=== PATIENT | male | born 1960 | race Caucasian/White ===

== ENCOUNTER 2020-07-17 08:37 | Inpatient (IN) | payer BC ==
[~2020-07-17] VITALS: Ht 172.7 cm; Wt 100.9 kg
[2020-10-02 09:28] LABS: BASO # 0.1 (0.0-0.2); BASO % 0.7 % (0.0-2.0); EOS # 0.1 (0.0-0.7); EOS % 1.7 % (0-4.0); GRAN # 4.8 (1.4-6.5); GRAN % 62.7 % (42.2-75.2); HEMATOCRIT 47.8 % (42.0-52.0); HEMOGLOBIN 16.4 g/dl (13.5-18.0); LYMPH # 1.9 (1.2-3.4); LYMPH % 24.6 % (20.0-51.0); MEAN CELL VOLUME 88 fl (80.0-100.0); MEAN CORPUSCULAR HEMOGLOBIN 30 pg (27.0-31.0); MEAN CORPUSCULAR HGB CONC 34 g/dl (33.0-37.0); MEAN PLATELET VOLUME 9.3 fl (7.4-10.4); MONO # 0.8 (0.1-0.6); PLATELET COUNT 203 K/mm3 (130-400); RED BLOOD COUNT 5.45 M/mm3 (4.20-5.60)
[2020-10-02 09:37] LABS: ALBUMIN 4.4 gm/dL (3.5-5.0); BILIRUBIN,TOTAL 0.6 mg/dL (0.0-1.0); CREATININE, serum 1.06 (0.66-1.25); POTASSIUM 4.4 mmol/L (3.4-5.0); TOTAL PROTEIN 7.9 gm/dL (6.4-8.2)
[2020-10-03] VITALS (10 sets, daily range): BP systolic 133–152; BP diastolic 49–96; PULSE 65–78; TEMP 18
--- NOTE | 2020-10-03 06:18 | NUR ---
AN 60YO MALE TO RM 8 PER OWN WILL STEADY GAIT. ALERT ORIENTED X3, VERBALIZED UNDERSTANDING AND SIGNED CONSENT.
[2020-10-03] MEDS ORDERED: ZYLOPRIM 300MG300 MG PO (06:20)
[2020-10-03] MEDS ORDERED: HYGROTON 2525 MG/TAB (06:20)
[2020-10-03] MEDS ORDERED: NORVASC 10MG10 MG PO (06:21)
[2020-10-03] MEDS ORDERED: LOTENSIN40 MG PO (06:21)
[2020-10-03] MEDS ORDERED: MAG-OX 400400 MG/TAB PO (06:21)
[2020-10-03] MEDS ORDERED: ADVIL200 MG PO (06:23)
[2020-10-03] MEDS ORDERED: VITAMIN D31000 I1 PO (06:23)
--- NOTE | 2020-10-03 06:24 | NUR ---
TO RM 8 AT 0535- CALL LIGHT IN REACH AT BEDSIDE.
--- NOTE | 2020-10-03 12:10 | NUR ---
PT RESTING IN BED, ASSESSMENTS WNL, PT TO ROOM 341 PER BED WITH REPORT FROM ENEIDA HARDWICK @1200. PT DROWSEY AROUSES TO VERBAL. IV PER GRAVITY TO LEFT HAND. HARMAN CATHETER TO DD WITH RED DRAINAGE IN BAG, ROBOTIC SITES CDI AND SUSANNE.
--- NOTE | 2020-10-03 23:11 | NUR ---
Pt has been doing good and was able to transfer from bed to chair with no pain or discomfort. IV toradol was given. Pt has 1000ml output and his urine is clear yellow. will continue to monitor.
[2020-10-04] VITALS: BP 105/59; PULSE 63; TEMP 98.2
[2020-10-04 05:01] VITALS: BP 123/70; PULSE 65; TEMP 98.8
[2020-10-04 06:19] LABS: HEMATOCRIT 39.6 % (42.0-52.0)
[2020-10-04 06:23] LABS: HEMOGLOBIN 13.7 g/dl (13.5-18.0)
--- NOTE | 2020-10-04 06:25 | NUR ---
Lab just called to report the pt's Hemoglobin has dropped from 16.7- 13.7.
[2020-10-04 06:27] LABS: CALCIUM 8.6 mg/dL (8.4-10.2); CREATININE, serum 1.13 (0.66-1.25); POTASSIUM 4.2 mmol/L (3.4-5.0)
[2020-10-04 07:19] VITALS: BP 128/66; PULSE 68; TEMP 98.6
--- NOTE | 2020-10-04 10:33 | NUR ---
Patient alert and oriented, answers questions appropriately. See assessment. Abdomen soft, non tender, non distended. Bowel sounds active x4 quads. +Flatus. Lap sites to abdomen with edges well approximated, no redness or drainage noted. Ace catheter in place to dependent drainage, clear pink urine present in bag. Post op exercises reviewed with patient. No c/o at this time.
[2020-10-04 11:59] VITALS: BP 130/68; PULSE 68; TEMP 99.1
--- NOTE | 2020-10-04 16:05 | NUR ---
Discharge instructions reviewed with patient and spouse, verbalized understanding. Ace catheter care reviewed with patient. Discharged via wheelchair to auto/home with spouse at 1545.
== END 2020-10-04 15:45 | disposition home or self-care (01) | DRG 708 ==
LOC: INPTSU 10-03 05:23 → SURG 10-03 07:30
PROVIDERS: ADMIT Urology
PROC: 07BC4ZZ Excision of Pelvis Lymphatic, Percutaneous Endoscopic Approach (ICD-10-PCS; 2020-10-03)
PROC: 8E0W4CZ Robotic Assisted Procedure of Trunk Region, Percutaneous Endoscopic Approach (ICD-10-PCS; 2020-10-03)
PROC: 0VT04ZZ Resection of Prostate, Percutaneous Endoscopic Approach (ICD-10-PCS; principal; 2020-10-03 07:30)
DX: C61 Malignant neoplasm of prostate (principal)
CPT/HCPCS: A4314; A9284; J0690; J1170; J1885; J2704; J7030; J7120